=== PATIENT | female | born 1985 | race Caucasian/White ===

== ENCOUNTER 2018-09-01 08:58 | Day surgery (SDC) | payer MEDICAID ==
[~2018-09-01] VITALS: Ht 152.4 cm; Wt 46.7 kg
[2018-09-01 10:05] LABS: BASOPHILS % 0.3 % (0.0-2.0); EOSINOPHILS % 1.9 % (0.0-5.0); HEMATOCRIT. 39.7 % (36.0-48.0); HEMOGLOBIN. 13.6 g/dL (12.0-16.0); LYMPHOCYTES % 19.5 % (20.0-50.0); MEAN CORPUSCULAR HEMOGLOBIN 30.5 pg (28.0-32.0); MEAN CORPUSCULAR VOLUME 88.9 fL (81.0-99.0); MEAN PLATELET VOLUME 9.2 fl (7.4-10.4); MONOCYTES % 5.4 % (2.0-8.0); NEUTROPHILS % 72.9 % (40.0-76.0); PLATELET 189 x1000/uL (130-400); RED BLOOD CELL COUNT 4.47 mill/uL (4.2-5.4); RED CELL DISTRIBUTION WIDTH 13.4 % (11.6-14.6)
[2018-09-01 10:10] LABS: CHLORIDE 106 mEq/L (98-107)
[2018-09-01 10:12] LABS: CLARITY URINE CLEAR (CLEAR); COLOR URINE YELLOW (YELLOW); KETONES URINE NEGATIVE (NEGATIVE); LEUKOCYTE ESTERASE URINE NEGATIVE (NEGATIVE); NITRITE URINE NEGATIVE (NEGATIVE); OCCULT BLOOD URINE NEGATIVE (NEGATIVE); PROTEIN URINE NEGATIVE (NEGATIVE); SPECIFIC GRAVITY URINE 1.022 (1.005-1.030); UROBILINOGEN URINE 0.2 E.U./dL (0.2-1.0)
[2018-09-01] MEDS ORDERED: PNV1TABL76 PO (10:13)
[2018-09-01] MEDS ORDERED: INDOMETHACIN 50MG CAPSULE PO SCH (10:30)
[2018-09-01 10:38] LABS: PARTIAL THROMBOPLASTIN TIME 27.4 sec (23.4-31.0)
[2018-09-01] MEDS ORDERED: SODIUM CHLORIDE 0.9% 10ML VIAL ONE ×3 (11:04→11:06)
[2018-09-01] MEDS ORDERED: BUPIVACAINE HCL/DEXTROSE/PF 0.75% 2ML AMP INJ ONE (11:04)
[2018-09-01] MEDS ORDERED: CEFAZOLIN SODIUM 1000MG/VIAL ONE (11:04)
[2018-09-01] MEDS ORDERED: EPHEDRINE SULFATE 50MG/ML VIAL ONE (11:05)
[2018-09-01] MEDS ORDERED: METOCLOPRAMIDE HCL 10MG/2ML VIAL ONE (11:09)
[2018-09-01] MEDS ORDERED: ONDANSETRON HCL 4MG/2ML INJ ONE (11:09)
[2018-09-01] MEDS ORDERED: GLYCOPYRROLATE 0.2 MG/ML 2ML VIAL ONE (11:20)
[2018-09-01] MEDS ORDERED: PROG200C7 VG (11:41)
[2018-09-01] MEDS ORDERED: OMEG-118 PO (11:41)
[2018-09-02] MEDS ORDERED: LACTATED RINGERS 1,000 ML IV SCH (09:40)
== END 2018-09-01 18:00 | disposition home or self-care (01) ==
LOC: OR 08:58
PROVIDERS: ATTEND Acupuncturist
DX: N88.3 Incompetence of cervix uteri (principal); Z3A.17 17 weeks gestation of pregnancy
CPT/HCPCS: 36415; 59320; 80048; 81003; 85025; 85610; 85730; 87086; J0690; J2405; J2765; J3490

== ENCOUNTER 2019-01-22 17:42 | Observation (INO) | payer MEDICAID ==
[~2019-01-22 17:42] MED LIST: OMEG-118 PO; PNV1TABL76 PO; PROG200C7 VG
== END 2019-01-22 18:10 | disposition home or self-care (01) ==
LOC: 8 EST LDRP 17:42
PROVIDERS: ADMIT Acupuncturist; ATTEND Acupuncturist
DX: O48.0 Post-term pregnancy (principal); Z3A.39 39 weeks gestation of pregnancy
CPT/HCPCS: G0378

== ENCOUNTER 2019-01-29 07:12 | Observation (INO) | payer MEDICAID ==
[~2019-01-29] VITALS: Ht 152.4 cm; Wt 57.6 kg
[2019-01-29] MEDS ORDERED: BUTORPHANOL TARTRATE 2 MG/ML VIAL IM PRN (12:15)
[2019-01-29] MEDS ORDERED: LACTATED RINGERS 1,000 ML IV SCH (12:15)
[2019-01-29 12:33] VITALS: BP 135/85
== END 2019-01-29 14:30 | disposition home or self-care (01) ==
LOC: 8 EST LDRP 07:12
PROVIDERS: ADMIT Obstetrics & Gynecology; ATTEND Obstetrics & Gynecology
DX: O26.893 Other specified pregnancy related conditions, third trimester (principal); R10.30 Lower abdominal pain, unspecified; Z3A.38 38 weeks gestation of pregnancy
CPT/HCPCS: 99281; G0378; J0595; 59871; 96360; 96361

== ENCOUNTER 2019-02-05 05:35 | Inpatient (IN) | payer MEDICAID ==
[~2019-02-05] VITALS: Ht 152.4 cm; Wt 59.0 kg
[2019-02-05] MEDS ORDERED: LACTATED RINGERS 1,000 ML IV SCH (06:26)
[2019-02-05] MEDS ORDERED: CARBOPROST TROMETHAMINE 250 MCG/ML AMPUL IM PRN (06:30)
[2019-02-05] MEDS ORDERED: METHYLERGONOVINE MALEATE 0.2 MG/ML IM PRN (06:30)
[2019-02-05] MEDS ORDERED: MISOPROSTOL 100MCG TABLET VG SCH (06:30)
[2019-02-05] MEDS ORDERED: LIDOCAINE HCL 1% 20ML VIAL (Pyxis) INJ INFIL SCH (06:30)
[2019-02-05 07:42] LABS: COLOR URINE YELLOW (YELLOW); KETONES URINE NEGATIVE (NEGATIVE); LEUKOCYTE ESTERASE URINE NEGATIVE (NEGATIVE); NITRITE URINE NEGATIVE (NEGATIVE); OCCULT BLOOD URINE NEGATIVE (NEGATIVE); PH URINE 6.5 (4.5-8.0); PROTEIN URINE NEGATIVE (NEGATIVE); SPECIFIC GRAVITY URINE 1.012 (1.005-1.030); UROBILINOGEN URINE 0.2 E.U./dL (0.2-1.0)
[2019-02-05 07:45] LABS: CLARITY URINE CLEAR (CLEAR)
[2019-02-05 07:58] LABS: INR 0.9; PARTIAL THROMBOPLASTIN TIME 24.9 sec (23.4-31.0); PROTHROMBIN TIME 9.4 sec (9.6-11.0)
[2019-02-05 07:59] LABS: BASOPHILS % 0.2 % (0.0-2.0); EOSINOPHILS % 1.1 % (0.0-5.0); HEMATOCRIT. 31.8 % (36.0-48.0); HEMOGLOBIN. 10.5 g/dL (12.0-16.0); LYMPHOCYTES % 18.6 % (20.0-50.0); MEAN CORPUSCULAR HEMOGLOBIN 26.9 pg (28.0-32.0); MEAN CORPUSCULAR VOLUME 81.7 fL (81.0-99.0); MEAN PLATELET VOLUME 10.5 fl (7.4-10.4); NEUTROPHILS % 70.1 % (40.0-76.0); PLATELET 152 x1000/uL (130-400); RED BLOOD CELL COUNT 3.89 mill/uL (4.2-5.4); RED CELL DISTRIBUTION WIDTH 15.2 % (11.6-14.6)
[2019-02-05 08:04] LABS: *AMPHETAMINES SCREEN URINE NEGATIVE (NEGATIVE); *BARBITURATES SCREEN URINE NEGATIVE (NEGATIVE)
[2019-02-05 08:05] LABS: *BENZODIAZEPINES SCREEN URINE NEGATIVE (NEGATIVE); *COCAINE SCREEN URINE NEGATIVE (NEGATIVE); CANNABINOID URINE SCREEN NEGATIVE (NEGATIVE); METHADONE URINE SCREEN NEGATIVE (NEGATIVE); OPIATES URINE SCREEN NEGATIVE (NEGATIVE); PHENCYCLIDINE URINE SCREEN NEGATIVE (NEGATIVE)
[2019-02-05] MEDS ORDERED: MORPHINE SULFATE/PF 1MG/ML 10ML AMP ONE (08:13)
[2019-02-05] MEDS ORDERED: OXYTOCIN 10 UNITS/ML 1ML ONE (08:14)
[2019-02-05] MEDS ORDERED: EPHEDRINE SULFATE 50MG/ML VIAL ONE (08:15)
[2019-02-05] MEDS ORDERED: PHENYLEPHRINE HCL 10 MG/ML 1ML (IV VIAL) IV ONE (08:15)
[2019-02-05] MEDS ORDERED: CEFAZOLIN SODIUM 1000MG/VIAL ONE (08:17)
[2019-02-05] MEDS ORDERED: SODIUM CHLORIDE 0.9% 10ML VIAL ONE (08:17)
[2019-02-05] MEDS ORDERED: BUPIVACAINE HCL/DEXTROSE/PF 0.75% 2ML AMP INJ ONE (08:17)
[2019-02-05] MEDS ORDERED: CITRIC ACID/SODIUM CITRATE SOLN 30ML UDC PO NR (08:45)
[2019-02-05] MEDS ORDERED: GLYCOPYRROLATE 0.2 MG/ML 2ML VIAL ONE (09:10)
[2019-02-05] MEDS ORDERED: ONDANSETRON HCL 4MG/2ML INJ ONE (09:34)
[2019-02-05] MEDS ORDERED: METOCLOPRAMIDE HCL 10MG/2ML VIAL ONE (09:35)
[2019-02-05] MEDS ORDERED: DEXAMETHASONE 4MG/ML 1ML VIAL ONE (10:10)
[2019-02-05] MEDS ORDERED: KETOROLAC 60MG/2ML VIAL IM ONE (10:11)
[2019-02-05] MEDS: DEXT 5%/LR + PITOCIN 20UNITS/L 1,000 ML IV SCH ×2 (10:45→15:48)
[2019-02-05] MEDS ORDERED: KETOROLAC 30MG/ML VIAL IV PRN (11:00)
[2019-02-05] MEDS ORDERED: DIPHENHYDRAMINE 50MG/ML VIAL IV PRN (11:15)
[2019-02-05 11:43] LABS: HEPATITIS B SURFACE ANTIGEN NEGATIVE
[2019-02-05] MEDS ORDERED: DEXT 5%/LR + PITOCIN 20UNITS/L 1,000 ML IV SCH (11:54)
[2019-02-05] MEDS ORDERED: ONDANSETRON HCL 4MG/2ML INJ IV PRN (12:00)
[2019-02-05] MEDS ORDERED: HYDROCODONE/ACETAMINOPHEN 5/325MG TABLET PO PRN (12:00)
[2019-02-05] MEDS ORDERED: RHO(D) IMMUNE GLOBULIN 300 MCG/SYR IM PRN (12:00)
[2019-02-05] MEDS ORDERED: ACETAMINOPHEN WITH CODEINE 300/30MG TABLET PO PRN (12:00)
[2019-02-05] MEDS ORDERED: LANOLIN OINT 7GM TUBE TOP PRN (12:00)
[2019-02-05] MEDS ORDERED: BISACODYL 10MG SUPP PR PRN (12:00)
[2019-02-05] MEDS: SIMETHICONE 80MG TABLET CHEW PO SCH ×3 (13:00→21:00)
[2019-02-05] MEDS: MAGNESIUM/ALUMINUM HYDROXIDE/SIMETHICONE 30ML UDC PO SCH ×3 (13:00→21:00)
[2019-02-05 13:15] VITALS: BP 107/60
[2019-02-05 13:45] VITALS: BP 112/73
[2019-02-05 16:17] VITALS: BP 113/62
[2019-02-05 19:20] VITALS: BP_SYST 102; BP_SYST 119; BP_DIAS 54; BP_DIAS 63
[2019-02-05] MEDS: DOCUSATE SODIUM 100MG CAPSULE PO SCH (21:00)
[2019-02-05 23:40] VITALS: BP 102/64
[2019-02-06 03:37] VITALS: BP 104/67
[2019-02-06 07:29] LABS: BASOPHILS % 0.2 % (0.0-2.0); EOSINOPHILS % 0.3 % (0.0-5.0); HEMATOCRIT. 27.1 % (36.0-48.0); HEMOGLOBIN. 9.2 g/dL (12.0-16.0); LYMPHOCYTES % 18.5 % (20.0-50.0); MEAN CORPUSCULAR HEMOGLOBIN 27.2 pg (28.0-32.0); MEAN CORPUSCULAR VOLUME 80.3 fL (81.0-99.0); MEAN PLATELET VOLUME 9.9 fl (7.4-10.4); MONOCYTES % 9.7 % (2.0-8.0); NEUTROPHILS % 71.3 % (40.0-76.0); PLATELET 131 x1000/uL (130-400); RED BLOOD CELL COUNT 3.37 mill/uL (4.2-5.4); RED CELL DISTRIBUTION WIDTH 14.9 % (11.6-14.6)
[2019-02-06 07:42] VITALS: BP 103/50
[2019-02-06] MEDS: SIMETHICONE 80MG TABLET CHEW PO SCH ×4 (08:22→21:02)
[2019-02-06] MEDS: PRENATAL VIT/FE FUMARATE/FA TABLET PO SCH (08:22)
[2019-02-06] MEDS: MAGNESIUM/ALUMINUM HYDROXIDE/SIMETHICONE 30ML UDC PO SCH ×4 (08:22→21:02)
[2019-02-06 15:51] VITALS: BP 117/69
[2019-02-06 19:10] VITALS: BP 121/64
[2019-02-06 20:00] VITALS: BP 120/65
[2019-02-06] MEDS: DOCUSATE SODIUM 100MG CAPSULE PO SCH (21:02)
[2019-02-06 23:44] VITALS: BP 122/66
[2019-02-07 04:00] VITALS: BP 122/67
[2019-02-07 07:15] VITALS: BP 121/66
[2019-02-07] MEDS: SIMETHICONE 80MG TABLET CHEW PO SCH (08:24)
[2019-02-07] MEDS: PRENATAL VIT/FE FUMARATE/FA TABLET PO SCH (08:24)
[2019-02-07] MEDS: IBUPROFEN 400MG TABLET PO PRN ×3 (08:24→20:52)
[2019-02-07 14:30] VITALS: BP 129/75
[2019-02-07 20:00] VITALS: BP 127/85
[2019-02-07] MEDS: DOCUSATE SODIUM 100MG CAPSULE PO SCH (20:51)
[2019-02-08] VITALS: BP 122/72
[2019-02-08 04:00] VITALS: BP 136/87
[2019-02-08] MEDS: IBUPROFEN 400MG TABLET PO PRN ×2 (04:40→09:57)
[2019-02-08 07:30] VITALS: BP 131/81
[2019-02-08] MEDS ORDERED: TETANUS, DIPHTHERIA, PERTUSSIS VAC/PF 0.5ML (>7YR OLD) IM ONE (08:00)
[2019-02-08] MEDS: PRENATAL VIT/FE FUMARATE/FA TABLET PO SCH (09:57)
== END 2019-02-08 11:45 | disposition home or self-care (01) | DRG 540 ==
LOC: OBSVTOIN 05:35 → 8 EST LDRP 05:35 → 8EST 13:00
PROVIDERS: ADMIT Obstetrics & Gynecology; ATTEND Obstetrics & Gynecology
PROC: 10D00Z1 Extraction of Products of Conception, Low, Open Approach (ICD-10-PCS; principal; 2019-02-05)
DX: O69.81X0 Labor and delivery complicated by cord around neck, without compression, not applicable or unspecified (principal); O34.219 Maternal care for unspecified type scar from previous cesarean delivery; Z37.0 Single live birth; Z3A.39 39 weeks gestation of pregnancy
CPT/HCPCS: 36415; 80305; 86592; 86703; 86762; 86850; 86900; 86920; 87340; 88307; 90715; G0378; J0690; J1100; J1885; J2274; J2370; J2405; J2590; J2765; J3490; J7120; A4315